=== PATIENT | male | born 1960 | race Caucasian/White ===

== ENCOUNTER → 2019-06-19 | Outpatient (CLI) | payer OTHER ==
--- NOTE | 2019-06-19 11:23 | RAD ---
Cervical spine radiograph 06/19/2019 12:00 AM INDICATION: Neck pain and arthritis COMPARISON: None available. TECHNIQUE: AP and lateral views of the cervical spine are provided. FINDINGS: The cervical spine is visualized from the craniocervical junction through the cervicothoracic junction. Minimal retrolisthesis of C3 on C4. No acute fracture is visualized. Bone mineralization is within normal limits. Mild disc height loss at C3-C4 and C5-C6. There is no prevertebral soft tissue swelling. Mild facet arthropathy. No significant uncovertebral joint disease. There is no osseous spinal canal stenosis. IMPRESSION: No acute fracture or malalignment of the cervical spine. Mild cervical spondylosis. Electronically signed by: Mary Thomas MD (06/19/2019 11:20 AM) [id number]
--- NOTE | 2019-06-19 11:24 | RAD ---
LUMBAR SPINE 2-3V 06/19/2019 12:00 AM Indication: Arthritis in the back with pain. No known injury. COMPARISON: None available TECHNIQUE: 2 views of the lumbar spine are provided. Findings: There is levoconvex scoliosis of the lumbar spine with apex levocurvature at L3-L4. Vertebral body heights are maintained. No acute fracture is identified. There is mild to moderate disc height loss at L3-L4 asymmetric to the right with right lateral marginal osteophytosis. There is endplate sclerosis and remodeling at L3-L4. There is moderate facet arthropathy lower lumbar spine. Mild osseous neural foraminal stenosis at L5-S1. Spinous processes are intact. Nonobstructive bowel gas pattern. Visualized portions of the sacrum appear intact. Impression: No acute fracture of the lumbar spine. Lumbar spondylosis centered at L3-L4, as described in detail above. Electronically signed by: Mary Thomas MD (06/19/2019 11:21 AM) [id number]
== END | disposition home or self-care (01) ==
LOC: RAD 09:27
PROVIDERS: ATTEND Surgery
DX: M47.816 Spondylosis without myelopathy or radiculopathy, lumbar region (principal); M47.812 Spondylosis without myelopathy or radiculopathy, cervical region; M48.07 Spinal stenosis, lumbosacral region; M41.86 Other forms of scoliosis, lumbar region; M53.82 Other specified dorsopathies, cervical region; M12.88 Other specific arthropathies, not elsewhere classified, other specified site
CPT/HCPCS: 72040; 72100